=== PATIENT | female | born 1970 | race Two or more races ===

== ENCOUNTER 2024-02-09 18:50 | Emergency (ER) | payer BC ==
[~2024-02-09] VITALS: Ht 160 cm; Wt 67.1 kg
[2024-02-09] MEDS ORDERED: HORMONE PROTEC1 EACH (19:25)
[2024-02-09] MEDS ORDERED: NEOMYCIN/POLYMYXIN B/HYDROCORT 20 DR/ML BOTTLE OT STA (20:24)
[2024-02-09] MEDS ORDERED: NEOMYCIN/POLYMYXIN B/HYDROCORT 20 DR/ML BOTTLE OT ONE (20:38)
[2024-02-09 20:56] LABS: HEMATOCRIT 41.9 % (36.0-45.00); MEAN CELL VOLUME 81.8 fL (80.00-100.00); MEAN CORPUSCULAR HEMOGLOBIN 27.4 pg (27.00-32.0); MEAN CORPUSCULAR HGB CONC 33.5 g/dl (32.0-36.0); PLATELET COUNT 230 K/uL (150-450); RED BLOOD COUNT 5.12 M/uL (4.00-6.00); RED CELL DISTRIBUTION WIDTH 13.3 % (11.5-14.5)
[2024-02-09] MEDS ORDERED: KETOROLAC TROMETHAMINE 30 MG VIAL IM STA (22:17)
[2024-02-09] MEDS ORDERED: KETOROLAC TROMETHAMINE 30 MG VIAL ONE (22:27)
== END 2024-02-09 22:34 | disposition home or self-care (01) ==
LOC: ER 18:52
PROVIDERS: General Practice
DX: H60.91 Unspecified otitis externa, right ear (principal); R50.9 Fever, unspecified; Z20.822 Contact with and (suspected) exposure to COVID-19; Z88.5 Allergy status to narcotic agent